=== PATIENT | female | born 1995 | race Caucasian/White ===

== ENCOUNTER 2020-06-12 23:53 | Emergency (ER) | payer OTHER ==
[~2020-06-12] VITALS: Ht 152.4 cm; Wt 60.0 kg
[2020-06-13] MEDS ORDERED: IRON325T9 PO
[2020-06-13] MEDS ORDERED: ACETAMINOPHEN 500 MG TAB PO ONE (00:45)
--- NOTE | 2020-06-13 01:39 | REPVR ---
PROCEDURE INFORMATION: Exam: XR Right Foot Exam date and time: 06/13/2020 12:50 AM Age: 25 years old Clinical indication: Pain; Foot; Right; Additional info: Fall TECHNIQUE: Imaging protocol: XR Right foot. Views: 3 or more views. COMPARISON: No relevant prior studies available. FINDINGS: Bones/joints: No acute fracture. No dislocation. Biphalangeal 5th toe which is a normal variant. Soft tissues: Normal. IMPRESSION: No acute findings. Electronically signed by: Krystyna Glez On 06/13/2020 01:40:06 AM
--- NOTE | 2020-06-13 01:40 | REPVR ---
PROCEDURE INFORMATION: Exam: XR Right Ankle Exam date and time: 06/13/2020 12:50 AM Age: 25 years old Clinical indication: Pain; Ankle; Right; Additional info: Fall TECHNIQUE: Imaging protocol: XR Right ankle. Views: 3 or more views. COMPARISON: No relevant prior studies available. FINDINGS: Bones/joints: No fracture. No dislocation. Joint spaces are preserved. Soft tissues: Normal. IMPRESSION: No acute findings. Electronically signed by: Krystyna Glez On 06/13/2020 01:41:05 AM
[2020-06-13 02:04] VITALS: BP 154/89
== END 2020-06-13 02:07 | disposition home or self-care (01) ==
LOC: M ED 23:53
DX: S93.401A Sprain of unspecified ligament of right ankle, initial encounter (principal); X50.1XXA Overexertion from prolonged static or awkward postures, initial encounter; Y92.481 Parking lot as the place of occurrence of the external cause; Y93.9 Activity, unspecified; Y99.9 Unspecified external cause status; D50.9 Iron deficiency anemia, unspecified; Z88.0 Allergy status to penicillin; Z88.1 Allergy status to other antibiotic agents; Z88.5 Allergy status to narcotic agent